=== PATIENT | female | born 1995 | race Caucasian/White ===

== ENCOUNTER 2020-10-09 15:58 | Emergency (ER) | payer MEDICAID ==
[~2020-10-09] VITALS: Ht 154.9 cm; Wt 61.2 kg
[2020-10-09 17:01] VITALS: BP 134/87; Ht 154.9 cm; Wt 61.2 kg
== END 2020-10-09 18:20 | disposition home or self-care (01) ==
LOC: ED 15:58
DX: S93.401A Sprain of unspecified ligament of right ankle, initial encounter (principal); X50.1XXA Overexertion from prolonged static or awkward postures, initial encounter; Y93.01 Activity, walking, marching and hiking; Y92.89 Other specified places as the place of occurrence of the external cause; Y99.8 Other external cause status